=== PATIENT | male | born 1995 | race Asian ===

== ENCOUNTER → 2023-06-12 | Outpatient (CLI) | payer BC ==
--- NOTE | 2023-06-13 11:57 | CA ---
Transthoracic Echo Report Name: Maurilio Mariee Age: 28 Gender: M : 1995 Exam Date: 06/12/2023 14:40 Exam Location: [facility] Ht (in): 68 Wt (lb): 200 Ordering Physician: Rajan Tovar MD Attending/Referring Phys: Investor Relations Analyst Elida Jean-Baptiste [facility] Procedure CPT: Indications: R42 dizziness and giddiness Cardiac Hx: Technical Quality: Fair Contrast 1: Total Dose (mL): Contrast 2: Total Dose (mL): MEASUREMENTS (Male / Female) Normal Values 2D ECHO LV Diastolic Diameter PLAX 4.4 cm 4.2 - 5.9 / 3.9 - 5.3 cm LV Systolic Diameter PLAX 2.9 cm IVS Diastolic Thickness 1.1 cm 0.6 - 1.0 / 0.6 - 0.9 cm LVPW Diastolic Thickness 1.0 cm 0.6 - 1.0 / 0.6 - 0.9 cm LV Relative Wall Thickness 0.5 LVOT Diameter 2.3 cm Ascending Aorta Diameter 2.6 cm M-MODE Aortic Root Diameter MM 2.8 cm LA Systolic Diameter MM 3.7 cm LA Ao Ratio MM 1.3 AV Cusp Separation MM 2.3 cm DOPPLER AV Peak Velocity 91.8 cm/s AV Peak Gradient 3.4 mmHg AV Mean Velocity 69.5 cm/s AV Mean Gradient 2.1 mmHg AV Velocity Time Integral 18.0 cm LVOT Peak Velocity 70.0 cm/s LVOT Peak Gradient 2.0 mmHg LVOT Velocity Time Integral 15.1 cm LVOT Stroke Volume 65.3 cm??? LVOT Stroke Volume Index 31.9 ml/m??? LVOT Cardiac Index 2287.5 cm???/min???m??? AV Area Cont Eq vti 3.6 cm??? AV Area Cont Eq pk 3.3 cm??? Mitral E Point Velocity 67.0 cm/s Mitral A Point Velocity 39.3 cm/s Mitral E to A Ratio 1.7 MV Deceleration Time 158.3 ms LV E' Lateral Velocity 13.9 cm/s Mitral E to LV E' Lateral Ratio 4.8 LV E' Septal Velocity 10.4 cm/s Mitral E to LV E' Septal Ratio 6.5 Right Atrial Pressure 3.0 mmHg FINDINGS Left Ventricle Mildly increased septal wall thickness. Left ventricular cavity size normal. Normal left ventricular systolic function with no obvious regional wall motion abnormalities. Left ventricular ejection fraction is estimated at 50-55%. Right Ventricle Mild right ventricular dilatation. Right Atrium Mild right atrial dilatation. Left Atrium Normal left atrial size. Mitral Valve Structurally normal mitral valve. Trace mitral regurgitation. Aortic Valve Trileaflet aortic valve. No aortic valve stenosis or regurgitation. Tricuspid Valve No tricuspid stenosis, regurgitation or prolapse. No tricuspid regurgitation. Pulmonic Valve Structurally normal pulmonic valve. Trace pulmonic regurgitation. Pericardium No pericardial effusion. Aorta Normal size aortic root and proximal ascending aorta. CONCLUSIONS Left ventricular ejection fraction is estimated at 50-55%. Normal left ventricular systolic function with no obvious regional wall motion abnormalities. No significant valvular destruction No pericardial effusion RVSP could not be estimated Previewed by: Dr Nasir Santiago (Electronically Signed) Final Date: 13 June 2023 11:56
== END | disposition home or self-care (01) ==
LOC: RADECHMAIN 14:27
PROVIDERS: ATTEND Family Medicine
DX: R42 Dizziness and giddiness (principal)
CPT/HCPCS: 93306

== ENCOUNTER 2024-05-26 13:02 | Emergency (ER) | payer BC ==
--- NOTE | 2024-05-26 13:41 | ED ---
Wound/Laceration HPI - General Source: patient, EMS, RN notes reviewed Mode of arrival: EMS Limitations: no limitations <Piyush Lainez - Last Filed: 05/26/24 13:40> - General Source: patient, EMS, RN notes reviewed Mode of arrival: EMS Limitations: no limitations <Jessika Benton - Last Filed: 05/27/24 19:44> - General Chief Complaint: Wound/Laceration Stated Complaint: laceration left foot Time Seen by Provider: 05/26/24 13:15 - History of Present Illness Initial Comments: Quick note 29-year-old male presents emergency department via EMS for complaint of laceration to his left foot fifth digit. He states he was moving some boxes in his basement and states that hatchet fell off a shelf onto his foot. He is unsure when his last tetanus was. Patient states that there is a laceration over his fifth digit. (Piyush Lainez) 29-year-old male presented the ER via EMS for evaluation of left fifth digit injury. Patient states he was moving a some boxes in his basement when a hatchet fell off and onto his left fifth digit/foot. He is reporting pain with ambulation. He denies any other injuries. Bleeding controlled with compression. Last tetanus status unknown. No paresthesias to fifth digit. No other complaints. (Jessika Benton) - Related Data Previous Rx's Medication Instructions Recorded Cephalexin [Keflex] 500 mg PO Q6HR #40 cap 05/26/24 Allergies Allergy/AdvReac Type Severity Reaction Status Date / Time No Known Allergies Allergy Verified 05/26/24 13:09 Review of Systems ROS Other: All systems not noted in ROS Statement are negative. <Piyush Lainez - Last Filed: 05/26/24 13:40> ROS Other: All systems not noted in ROS Statement are negative. <Jessika Benton - Last Filed: 05/27/24 19:44> ROS Statement: Those systems with pertinent positive or pertinent negative responses have been documented in the HPI. Past Medical History Past Medical History: No Reported History Additional Past Surgical History / Comment(s): wisdom teeth Past Psychological History: No Psychological Hx Reported Smoking Status: Never smoker Past Alcohol Use History: Occasional Past Drug Use History: None Reported <Piyush Lainez - Last Filed: 05/26/24 13:40> General Exam Limitations: no limitations <Piyush Lainez - Last Filed: 05/26/24 13:40> General appearance: alert, in no apparent distress Respiratory exam: Present: normal lung sounds bilaterally. Absent: respiratory distress, wheezes, rales, rhonchi, stridor Cardiovascular Exam: Present: regular rate, normal rhythm, normal heart sounds. Absent: systolic murmur, diastolic murmur, rubs, gallop, clicks Extremities exam: Present: full ROM, normal capillary refill, other (2 cm laceration to left fifth digit extending into interdigital web. There is minimal oozing at this time. Patient has limited range of motion. 2+ left DP and PT pulse.) Neurological exam: Present: alert, oriented X3 Skin exam: Present: warm, dry, intact, normal color. Absent: rash <Jessika Benton - Last Filed: 05/27/24 19:44> - General Exam Comments Initial Comments: Visual Physical Exam Vital signs reviewed General: Well-appearing, nontoxic, no acute distress. Head: Normocephalic, atraumatic Eyes: PERRLA, EOMI ENT: Airway patent Chest: Nonlabored breathing Skin: No visual rash, normal skin tone Neuro: Alert and oriented 3 Musculoskeletal: No gross abnormalities (Piyush Lainez) Course <Jessika Benton - Last Filed: 05/27/24 19:44> Vital Signs 05/26/24 05/26/24 13:09 15:59 Temperature 98.3 F 97.9 F Pulse Rate 70 72 Respiratory 20 18 Rate Blood Pressure 127/84 130/70 O2 Sat by Pulse 100 97 Oximetry - Reevaluation(s) Reevaluation #1: 05/26/24 14:53 Case discussed with on-call orthopedics, Dr. Byrd. He advised on approximating wound after thorough washout, tetanus update, IM cefazolin along with patient discharged with p.o. Keflex. Patient can follow-up outpatient. (Jessika Benton) Procedures - Laceration Laceration #1 Consent Obtained: verbal consent Indication: laceration Site: foot Size (cm): 2 Description: irregular Depth: [id number] Anesthetic Used: lidocaine 1%, without epi Anesthesia Technique: nerve block (digital) Amount (mls): 5 Pre-repair: wound explored, irrigated extensively, deep structures intact Size of Sutures: 4-0 Number of Sutures: 7 Technique: simple, interrupted Patient Tolerated Procedure: well <Jessika Benton - Last Filed: 05/27/24 19:44> Medical Decision Making <Piyush Lainez - Last Filed: 05/26/24 13:40> - Radiology Data Radiology results: report reviewed, image reviewed <Jessika Benton - Last Filed: 05/27/24 19:44> - Medical Decision Making I completed the quick note portion of this chart signed Piyush Lainez PA-C (Piyush Lainez) Was pt. sent in by a medical professional or institution (, PA, TAX LAWYER, urgent care, hospital, or usp...) When possible be specific @ -No Did you speak to anyone other than the patient for history (EMS, parent, family, police, friend...)? What history was obtained from this source @ -No Did you review nursing and triage notes (agree or disagree)? Why? @ -I reviewed and agree with nursing and triage notes Were old charts reviewed (outside hosp., previous admission, EMS record, old EKG, old radiological studies, urgent care reports/EKG's, usp records)? Report findings @ -No old charts were reviewed Differential Diagnosis (chest pain, altered mental status, abdominal pain women, abdominal pain men, vaginal bleeding, weakness, fever, dyspnea, syncope, headache, dizziness, GI bleed, back pain, seizure, CVA, palpatations, mental health, musculoskeletal)? @ -Differential Musculoskeletal: Muscular strain, contusion, ligament sprain, fracture, arthritis, septic arthritis, bursitis, cellulitis, muscle spasm, nerve compression, DVT, arterial occlusion, herpes zoster, electrolyte abnormality, tumor.... This is not meant to be in all inclusive list EKG interpreted by me (3pts min.). @ -None done X-rays interpreted by me (1pt min.). @ -Left foot x-ray interpreted by me showing left fifth digit distal phalanx fracture CT interpreted by me (1pt min.). @ -None done U/S interpreted by me (1pt. min.). @ -None done What testing was considered but not performed or refused? (CT, X-rays, U/S, labs)? Why? @ -None What meds were considered but not given or refused? Why? @ -None Did you discuss the management of the patient with other professionals (pro fessionals i.e. , DEANDRE, TAX LAWYER, lab, RT, psych nurse, social media executive, vehicle inspector, teacher, medical laboratory technical officer, director of casework)? Give summary @ -Yes, case discussed with on-call orthopedics, Dr. Byrd, due to open fracture. He stated to thoroughly wash out wound, approximate skin, tetanus and IM antibiotics along with p.o Keflex at discharge. He also recommended home with hard sole shoe. Was smoking cessation discussed for >3mins.? @ -No Was critical care preformed (if so, how long)? @ -No Were there social determinants of health that impacted care today? How? (Homelessness, low income, unemployed, alcoholism, drug addiction, transportation, low edu. Level, literacy, decrease access to med. care, retirement, rehab)? @ -No Was there de-escalation of care discussed even if they declined (Discuss DNR or withdrawal of care, Hospice)? DNR status @ -No What co-morbidities impacted this encounter? (DM, HTN, Smoking, COPD, CAD, Cancer, CVA, ARF, Chemo, Hep., AIDS, mental health diagnosis, sleep apnea, morbid obesity)? @ -None Was patient admitted / discharged? Hospital course, mention meds given and route, prescriptions, significant lab abnormalities, going to OR and other pertinent info. @ -Discharge. 29-year-old male presented to ER for evaluation of left fifth digit injury. History and physical exam completed. Vitals within normal limits. There is a 2 cm laceration to left fifth digit extending into the interdigital space. X-rays concerning of a fracture. Given overlying laceration and fracture this is considered an open fracture. Case was discussed with on-call orthopedics, Dr. Byrd, see recommendations above. Patient received tetanus vaccination and 1 g IM cefazolin for infection prophylaxis. Wound closed, see note above. Patient placed in a hard sole shoe and instructed to follow-up closely with orthopedics. Keflex prescribed. Wound care discussed. I advised suture removal in 10 to 14 days. Strict return parameters discussed. Patient discharged in stable condition with follow-up to PCP. Patient verbally expressed understanding and agreement with care plan. Case discussed with ED attending, Dr. Elaine. Undiagnosed new problem with uncertain prognosis? @ -No Drug Therapy requiring intensive monitoring for toxicity (Heparin, Nitro, Insulin, Cardizem)? @ -No Were any procedures done? @ -Yes Diagnosis/symptom? @ -Open fracture of left fifth digit Acute, or Chronic, or Acute on Chronic? @ -Acute Uncomplicated (without systemic symptoms) or Complicated (systemic symptoms)? @ -Complicated Side effects of treatment? @ -No Exacerbation, Progression, or Severe Exacerbation? @ -No Poses a threat to life or bodily function? How? (Chest pain, [place], [place], pneumonia, PE, COPD, DKA, ARF, appy, cholecystitis, CVA, Diverticulitis, Homicidal, Suicidal, threat to staff... and all critical care pts) @ -Yes, open fractures can lead to osteomyelitis and/or sepsis which can be life-threatening. (Jessika Benton) Disposition <Piyush Lainez - Last Filed: 05/26/24 13:40> Is patient prescribed a controlled substance at d/c from ED?: No Time of Disposition: 14:56 <Jessika Benton - Last Filed: 05/27/24 19:44> Clinical Impression: Open fracture of toe of left foot Disposition: HOME SELF-CARE Condition: Stable Instructions (If sedation given, give patient instructions): Toe Fracture (ED) Additional Instructions: Complete full course of antibiotics. Follow-up closely with Dr. Byrd in the next 2-3 days. Return to the ER for any new or worsening symptoms. Prescriptions: Cephalexin [Keflex] 500 mg PO Q6HR #40 cap Referrals: Rajan Tovar MD [Primary Care Provider] - 1-2 days Jeremy Byrd MD [STAFF PHYSICIAN] - 1-2 days
--- NOTE | 2024-05-26 13:44 | XR ---
EXAMINATION TYPE: XR foot complete LT DATE OF EXAM: 05/26/2024 1:26 PM COMPARISON: None. CLINICAL INDICATION: Male, 29 years old with history of trauma, pain TECHNIQUE: 3 view(s) obtained. FINDINGS: There may be some acute change at the distal interphalangeal joint space fifth digit. Correlate with location of the patient's pain. No additional areas suspicious for fracture is evident. Joint spaces are otherwise preserved. Soft ti ssues appear normal. Follow up exams can be performed 7-10 days from acute trauma for continued pain. IMPRESSION: 1. Clinical consideration for fracture at the distal interphalangeal joint space fifth digit [facility], , 05/26/2024 1:41 PM
[2024-05-26] MEDS: DIPH,PERTUS(ACELL)TETVAC-LF 0.5 ML VIAL IM ONE (14:20)
[2024-05-26] MEDS: LIDOCAINE 1% INJ 10MG/ML (20 ML MDV) SQ ONE (14:21)
[2024-05-26] MEDS: ceFAZolin 1,000 MG VIAL (IM USE) IM STA (14:22)
[2024-05-26 16:00] VITALS: BP 130/70; PULSE 72; RESP 18; TEMP 97.9
== END 2024-05-26 15:59 | disposition home or self-care (01) ==
LOC: EC 13:02
DX: S92.912B Unspecified fracture of left toe(s), initial encounter for open fracture (principal); Z23 Encounter for immunization; W18.31XA Fall on same level due to stepping on an object, initial encounter
CPT/HCPCS: 73630; 90715; 99284; 96372; 90471; 12001; J0690; J2003